=== PATIENT | male | born 1985 | race Hispanic/Latino ===

== ENCOUNTER → 2017-07-15 | Outpatient (CLI) | payer BC ==
--- NOTE | 2017-07-15 17:56 | US ---
EXAM DESCRIPTION: Testicular CLINICAL HISTORY: 32 years Male, SWELLING RT TEST-OTHER SPECIFIED D/O MALE GENITALS COMPARISON: None. FINDINGS: Examination of the scrotum demonstrates that the right testis to be 3.9 x 3.4 x 2.0 cm and the left testis 4.3 x 2.8 x 2.2 cm. Both testicles demonstrate numerous small echogenic foci throughout the testis without a focal mass. These are 1 to 2 mm in size and consistent with testicular microlithiasis. A small right hydrocele is present. The right epididymis is 6 x 4 x 4 mm and the left epididymis is 6 x 8 x 10 mm with an associated 6 mm multilocular cyst but otherwise simple appearing cyst. No hypoechoic or hyperechoic testicular masses are noted. There is a questionable association of testicular microlithiasis and testicular carcinoma. At this time the recommendation for follow-up is that if the patient has no associated risk factors for testicular carcinoma then no additional follow-up is recommended. If the patient has known risk factor for carcinoma, such as previous undescended testis or other risk factors, then recommendation for annual sonographic follow-up would be a consideration. Normal flow within both testes is noted. No additional scrotal abnormality is noted. IMPRESSION: 1. 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 There is a questionable association between this entity and testicular carcinoma and follow-up examination should be considered if the patient has any associated risk factors for testicular neoplasm. 2. Small right hydrocele and small left epididymal head cyst. Electronically signed by: Gilbert Lewis MD 07/15/2017 5:55 PM [employer]
== END | disposition home or self-care (01) ==
LOC: US 16:08
PROVIDERS: ATTEND Physician Assistant
DX: N50.89 Other specified disorders of the male genital organs (principal); L72.8 Other follicular cysts of the skin and subcutaneous tissue; N43.2 Other hydrocele

== ENCOUNTER → 2020-04-10 | Outpatient (CLI) | payer BC | LOC: GMAL 15:07 | PROVIDERS: ATTEND Family Medicine | DX: R94.6 Abnormal results of thyroid function studies (principal) ==